=== PATIENT | male | born 1985 | race Caucasian/White ===

== ENCOUNTER 2021-06-14 10:41 | Inpatient (IN) | payer MEDICAID, SELFPAY ==
--- NOTE | ~2021-06-14 | XR_ITS ---
EXAMINATION: XR CHEST CLINICAL INFORMATION: Chest pain COMPARISON: None TECHNIQUE: Frontal view of the chest was obtained. FINDINGS: No significant abnormality is noted involving the heart, lungs, mediastinum, bony thorax or soft tissues. XR/XR chest 1V IMPRESSION: Unremarkable examination.
--- NOTE | ~2021-06-14 | US_ITS ---
EXAMINATION: US ABDOMEN LIMITED CLINICAL INFORMATION: Epigastric abdominal pain.. COMPARISON: None TECHNIQUE: Real-time imaging of the gallbladder in the right upper quadrant FINDINGS: The gallbladder contains echogenic, Shadowing stones between 0.8 and 1.5 cm in diameter. The gallbladder wall is thickened. Echogenic bile is noted. No pericholecystic fluid is identified on these images. Patient is tender in the region of the gallbladder. US/US abdomen limited IMPRESSION: Cholelithiasis with a thickened gallbladder wall and local tenderness, most concerning for acute cholecystitis.
--- NOTE | 2021-06-14 11:21 | ECG_ITS ---
Test Reason : chest paim Blood Pressure : / mmHG Vent. Rate : 061 BPM Atrial Rate : 061 BPM P-R Int : 102 ms QRS Dur : 092 ms QT Int : 408 ms P-R-T Axes : 071 069 071 degrees QTc Int : 410 ms Sinus rhythm with sinus arrhythmia with short FL Early repolarization Otherwise normal ECG No previous ECGs available Referred By: Generic ED Physician Electronically Signed By:Clinton Klein
[2021-06-14 11:38] VITALS: BP 126/55; PULSE 67; RESP 18; TEMP 36.9; O2SAT 98; BMI 24.3
[2021-06-14 12:14] LABS: MANUAL DIFF FLAG NO
[2021-06-14 12:19] LABS: Basophils Percent Auto 0.2 % (0-2); Eosinophils Absolute Auto 0.1 X10*3/uL (0.0-0.4); Eosinophils Percent Auto 0.3 % (0-4); Hematocrit 42.3 % (42.0-52.0); Hemoglobin 14.3 g/dl (14.0-18.0); Imm Gran Abs Auto 0.06 X10*3/uL (0.00-0.03); Imm Gran Pct Auto 0.3 % (0.0-0.4); Lymphocytes Absolute Auto 2.1 X10*3/uL (1.2-4.9); Lymphocytes Percent Auto 12.3 % (20-40); Mean Corpuscular HGB Conc 33.8 g/dl (31.0-36.0); Mean Corpuscular Hemoglobin 30.4 pg (27.0-33.0); Mean Corpuscular Volume 89.8 fL (80.0-98.0); Mean Platelet Volume 9.3 fL (9.4-12.4); Monocytes Absolute Auto 0.6 X10*3/uL (0.1-1.2); Monocytes Percent Auto 3.7 % (2-11); Neutrophils Absolute Auto 14.3 x10*3/uL (2.0-8.3); Neutrophils Percent Auto 83.2 % (45-73); Platelet Count 286 X10*3/uL (160-400); Red Blood Count 4.71 X10*6/uL (4.60-5.80); Red Cell Distribution Width 11.9 % (11.0-16.0); White Blood Count 17.2 X10*3/uL (4.8-10.8)
[2021-06-14 12:31] LABS: COVID-19 Test Negative (Negative)
[2021-06-14 12:43] LABS: Anion Gap 11 (12-20); Blood Urea Nitrogen 16 mg/dL (9-16); Calcium 9.8 mg/dL (8.4-10.2); Carbon Dioxide 28 mmol/L (22-29); Chloride 106 mmol/L (96-108); Creatinine Clr Calc Pharmacy 124.9; Estimated Glomerular Filt Rate > 60; Glucose Random 107 mg/dL (60-115); Potassium 4.4 mmol/L (3.3-5.1); Sodium 141 mmol/L (135-145)
[2021-06-14 19:08] LABS: Alanine Aminotransferase 44 U/L (0-40); Albumin Level 4.5 g/dL (3.5-5.0); Alkaline Phosphatase 119 U/L (39-117); Aspartate Amino Transferase 24 U/L (5-37); Bilirubin Direct < 0.2 mg/dL (0.0-0.5); Bilirubin Total 0.3 mg/dL (0.0-1.0); Lipase 16 U/L (8-78); Total Protein 7.5 g/dL (6.5-8.0)
[2021-06-14 20:39] VITALS: BP 136/71; PULSE 60; RESP 18; O2SAT 98
[2021-06-14] MEDS: Morphine Sulfate 4 MG/ML CARTRIDGE IVPUSH (20:55)
[2021-06-14] MEDS: ondansetron HCL 4 MG/2 ML VIAL IVPUSH (20:55)
[2021-06-14] MEDS: HYDROmorphone HCl 1 MG/ML SYRINGE IVPUSH (21:48)
[2021-06-14] MEDS: Metoclopramide HCl 10 MG/2 ML VIAL IVPUSH (21:49)
[2021-06-14] MEDS: LORazepam 2 MG/ML VIAL 1 MG IVPUSH (21:49)
--- NOTE | 2021-06-14 21:56 | ED_ITS ---
HPI - Abdominal Pain General Chief Complaint: Chest Pain Stated Complaint: Chest pain Time Seen by Provider: 06/14/21 13:56 Source: patient Mode of arrival: ambulatory Limitations: no limitations History of Present Illness HPI narrative: 36-year-old male presenting to the ED with complaints of chest pain/epigastric abdominal pain that started at 02:00am and will come up out of his sleep. He reports that he has associated nausea/vomiting. He reports occasionally he has some dysuria and hematuria although not today. Denies any fevers, chills, dizziness, headaches, neck pain /stiffness, sore throat, cough, trouble swallowing or breathing, dyspnea on exertion, orthopnea, palpitations, rashes, Abnormal penile discharge, diarrhea, constipation, black or bloody stools, recent travel or possible bad food exposure, recent antibiotic usage or any other symptoms complaints or concerns at this time. Patient denies any recent drug or alcohol usage. MD elicited complaint: abdominal pain Pertinent past history: none Onset (ago): hour(s) ( Prior to arrival) Pain Consistency: constant Location: chest and epigastric Severity: severe Pain scale (0-10): 10 Quality: aching and sharp Radiation: none Migration to: no migration Exacerbating factors: nothing Relieving factors: nothing Associated symptoms: nausea and vomiting Related Data Home Medications Medication Instructions Recorded Confirmed methadone 10 mg/mL oral 60 mg PO DAILY 06/14/21 06/14/21 concentrate (Methadone Intensol) Allergies Allergy/AdvReac Type Severity Reaction Status Date / Time No Known Allergies Allergy Unverified 02/12/20 17:52 [No Known Allergies*] Review of Systems Review of Systems Constitutional : No Weight loss, No Fever, No Chills, No Night Sweats, No Fatigue, No Malaise ENT/Mouth : No Hearing loss, No Ear Pain, No Nasal Congestion, No Sinus Pain, No Hoarseness, No sore throat, No Rhinorrhea, No Swallowing Difficulty Eyes: No Eye Pain, No Swelling, No Redness, No Foreign Body, No Discharge, No Vision Changes Cardiovascular : No Chest Pain, No SOB, No Dyspnea on Exertion, No Orthopnea, No Edema, No Palpitations Respiratory : No Cough, No Sputum, No Wheezing, No Smoke Exposure, No Dyspnea Gastrointestinal : Positive nausea/ vomiting /abdominal pain, No Diarrhea, No Constipation, No Hematochezia, No Melena Genitourinary : no irregular bleeding, No Dysuria, No Urinary Frequency, No Hematuria, No Urinary Incontinence, No Urgency, No Flank Pain, No Urinary Flow Changes, No Hesitancy Musculoskeletal : No joint pain, No Myalgias, No Joint Swelling Skin : No Skin Lesions, No rash Neuro : No Weakness, No Numbness, No Paresthesias, No Loss of Consciousness, No Dizziness, No Headache Psych : No Anxiety/Panic, No Depression, No SI/HI/AH/VH, No Social Issues, Heme/Lymph: No Bruising, No Bleeding,No Lymphadenopathy Endocrine : No Polyuria, No Polydipsia, No Temperature Intolerance Yes all other systems are reviewed and are negative Physical Exam Vital Signs: Vital Signs: Last Vital Signs Temp 98.4 F 06/14/21 11:38 Pulse 60 06/14/21 20:39 Resp 18 06/14/21 20:39 BP 136/71 06/14/21 20:39 Pulse Ox 98 06/14/21 20:39 BMI result Body Mass Index 24.3 vital signs have been reviewed as normal and appeared to be correct. Blood pressure 126/55. Heart rate normal. Respiration rate normal. Temperature normal. Oxygen saturation normal. Appearance: Alert. Oriented X3. in severe abdominal pain otherwise no other acute distress. Head: Normal external exam. Normocephalic. Eyes: PERRLA. EOMI. Conjunctiva and sclera normal. Eyelids normal. ENT: Pharynx normal. Uvula midline. Moist mucous membranes. No trismus noted. No drooling noted. No muffled voice noted. Neck: Normal inspection. Neck supple. FROM. No adenopathy. No meningeal signs. CVS: Normal heart rate and rhythm. Heart sound normal. No murmurs noted. Pulses normal throughout. Respiratory: No respiratory distress. Painless inspiration. Breath sounds normal. No wheezes/rales/rhonchi noted. Chest nontender. No accessory muscle usage noted or decreased air movement noted. Abdomen: Soft and Moderate tenderness up patient to epigastric / upper abdomen with guarding. Nondistended. Positive Cavanaugh sign. No rigidity. Bowel sounds normal in all 4 quadrants. No distention noted. No organomegaly noted. No visible injury noted. No rebound tenderness. Negative Rovsing sign. Negative obturator's sign. Negative psoas sign. Back: No CVA tenderness. Full range of motion noted. Skin: Skin warm and dry. Normal skin color. Normal skin turgor. No junie hes/lesions/lacerations noted. Extremities: Extremities exhibit normal range of motion. Extremities nontender. Neuro: Oriented X 3. No motor deficit. No sensory deficit. Reflexes normal. Normal steady gait. Course Course Course Narrative: 20:45am - 36-year-old male presenting to the ED with complaints of chest pain/epigastric abdominal pain that started at 02:00am and will come up out of his sleep. He reports that he has associated nausea/vomiting. He reports occasionally he has some dysuria and hematuria although not today. Plan: Labs were obtained while the patient was in the waiting room and it revealed that the patient has an elevated white blood cell count at 17,000. Anion gap 11. ALT 44. Alkaline phosphate 119. Otherwise all other labs are within normal limits. Patient negative for COVID. Therefore at this time patient is in severe pain unable to lay down and is in a dog position on the bed holding his abdomen sane that he has severe pain 10/10. Therefore will give 4 mg of morphine and 4 mg of Zofran then re-evaluate. Reevaluation(s) Reevaluation #1: - Chest x-ray within normal limits no acute processes were noted - abdominal ultrasound revealed cholelithiasis with a thickened gallbladder wall and local tenderness most concerning for acute cholecystitis. - Therefore consulted this patient with Dr. Kevin the general surgeon who will admit the patient at this time for acute cholecystitis. Patient had to be given 1 mg of Dilaudid, 1 mg of Ativan and 10 mg of Reglan and pain is more controlled. Time: 21:45 MDM - Abdominal Pain Medical Records Attestation: I reviewed the patient's medical records. Lab Data Attestation: I reviewed the patient's lab results. Result diagrams: 06/14/21 12:04 06/14/21 12:04 Labs: Lab Results 06/14/21 06/14/21 06/14/21 Range/Units 12:04 12:04 12:05 WBC 17.2 H (4.8-10.8) X10*3/uL RBC 4.71 (4.60-5.80) X10*6/uL Hgb 14.3 (14.0-18.0) g/dl Hct 42.3 (42.0-52.0) % MCV 89.8 (80.0-98.0) fL MCH 30.4 (27.0-33.0) pg MCHC 33.8 (31.0-36.0) g/dl RDW 11.9 (11.0-16.0) % Plt Count 286 (160-400) X10*3/uL MPV 9.3 L (9.4-12.4) fL Immature Gran % (Auto) 0.3 (0.0-0.4) % Neut % (Auto) 83.2 H (45-73) % Lymph % (Auto) 12.3 L (20-40) % [place] % (Auto) 3.7 (2-11) % Eos % (Auto) 0.3 (0-4) % Baso % (Auto) 0.2 (0-2) % Lymph # (Auto) 2.1 (1.2-4.9) X10*3/uL [place] # (Auto) 0.6 (0.1-1.2) X10*3/uL Eos # (Auto) 0.1 (0.0-0.4) X10*3/uL Baso # (Auto) 0.0 (0.0-0.2) X10*3/uL Abs Immat Gran (auto) 0.06 H (0.00-0.03) X10*3/uL Absolute Neuts (auto) 14.3 H (2.0-8.3) x10*3/uL Absolute Nucleated RBC 0.000 (0.0-0.012) X10*3/uL Nucleated RBC % (auto) 0.0 (0.0-0.2) /100WBC Sodium 141 (135-145) mmol/L Potassium 4.4 (3.3-5.1) mmol/L Chloride 106 (96-108) mmol/L Carbon Dioxide 28 (22-29) mmol/L Anion Gap 11 L (12-20) BUN 16 (9-16) mg/dL Creatinine 0.86 (0.5-1.4) mg/dL Estim Creat Clear Calc 124.9 Estimated GFR > 60 Random Glucose 107 (60-115) mg/dL Calcium 9.8 (8.4-10.2) mg/dL Total Bilirubin 0.3 (0.0-1.0) mg/dL Direct Bilirubin < 0.2 (0.0-0.5) mg/dL AST 24 (5-37) U/L ALT 44 H (0-40) U/L Alkaline Phosphatase 119 H (39-117) U/L Total Protein 7.5 (6.5-8.0) g/dL Albumin 4.5 (3.5-5.0) g/dL Lipase 16 (8-78) U/L COVID-19 ([facility]) Negative (Negative) COVID-19 Clin Com See Note Imaging Data Chest x-ray: Attestation: I personally reviewed and interpreted this imaging study as follows: Radiologist's impression: FINDINGS: No significant abnormality is noted involving the heart, lungs, mediastinum, bony thorax or soft tissues. XR/XR chest 1V IMPRESSION: Unremarkable examination. Abdominal ultrasound limited: Attestation: I personally reviewed and interpreted this imaging study as follows: Radiologist's impression: FINDINGS: The gallbladder contains echogenic, Shadowing stones between 0.8 and 1.5 cm in diameter. The gallbladder wall is thickened. Echogenic bile is noted. No pericholecystic fluid is identified on these images. Patient is tender in the region of the gallbladder. US/US abdomen limited IMPRESSION: Cholelithiasis with a thickened gallbladder wall and local tenderness, most concerning for acute cholecystitis. ECG Data Attestation: I personally reviewed and interpreted this ECG as follows: ECG interpretation date: 06/14/21 ECG interpretation time: 12:07 Interpretation: sinus rhythm with sinus arrhythmia with short DC interval with a ventricular rate of 61 with early repolarization no acute ischemic changes are noted. No prior EKGs to compare to at this time. Critical Care Time Critical Care Time Critical Care Time: Yes Total Critical Care Time: 60 Attestation: I personally attest to this time spent taking care of the patient Discharge Plan Discharge Clinical Impression: Acute cholecystitis Patient Disposition: Admitted As Inpatient [facility] Past Medical History Attestation statement: The following information was validated with the patient. Social History Social History Advance Directives: No Advance Directives Information Provided: No
[2021-06-15] VITALS (13 sets, daily range): BP systolic 106–158; BP diastolic 54–76; PULSE 60–87; RESP 16–20; TEMP 36.7–37.4; O2SAT 96–99
--- NOTE | 2021-06-15 02:17 | PC.NURSE ---
Patient alert and oriented x 3. ambulates independently. came in vomiting and in excruciating pain medicated with morphine that did not help then medicated with ativan, dilaudid and reglan with relief. Paged Dr. Kevin for pain medications. report called to S3. Will continue to monitor.
[2021-06-15] MEDS: HYDROmorphone HCl 1 MG/ML SYRINGE 0.5 MG IVPUSH ×2 (03:11→08:09)
[2021-06-15] MEDS: 0.9 % Sodium Chloride Flush 3 ML SYRINGE IVFLUSH (03:45)
[2021-06-15] MEDS: Dextrose 5 % and Lactated Ring 1,000 ML 125 ML IVCONT ×2 (03:47→11:35)
[2021-06-15] MEDS: Piperacillin Sodium/Tazobactam 3.375 GM in 0.9 % Sodium Chloride 50 ML IV ×2 (04:05→08:10)
[2021-06-15 05:16] LABS: MANUAL DIFF FLAG NO
[2021-06-15 05:33] LABS: Anion Gap 14 (12-20); Blood Urea Nitrogen 14 mg/dL (9-16); Calcium 9.6 mg/dL (8.4-10.2); Carbon Dioxide 25 mmol/L (22-29); Chloride 103 mmol/L (96-108); Estimated Glomerular Filt Rate > 60; Glucose Random 143 mg/dL (60-115); Sodium 138 mmol/L (135-145)
[2021-06-15 05:43] LABS: Basophils Percent Auto 0.1 % (0-2); Hematocrit 38.6 % (42.0-52.0); Hemoglobin 13.4 g/dl (14.0-18.0); Imm Gran Pct Auto 0.5 % (0.0-0.4); Lymphocytes Percent Auto 9.6 % (20-40); Mean Corpuscular HGB Conc 34.7 g/dl (31.0-36.0); Mean Corpuscular Hemoglobin 30.2 pg (27.0-33.0); Mean Corpuscular Volume 87.1 fL (80.0-98.0); Mean Platelet Volume 9.7 fL (9.4-12.4); Monocytes Absolute Auto 1.3 X10*3/uL (0.1-1.2); Monocytes Percent Auto 6.1 % (2-11); Neutrophils Absolute Auto 17.5 x10*3/uL (2.0-8.3); Neutrophils Percent Auto 83.7 % (45-73); Platelet Count 282 X10*3/uL (160-400); Red Blood Count 4.43 X10*6/uL (4.60-5.80); Red Cell Distribution Width 11.9 % (11.0-16.0); White Blood Count 20.9 X10*3/uL (4.8-10.8)
[2021-06-15] MEDS: ondansetron HCL 4 MG/2 ML VIAL IVPUSH ×2 (08:08→14:35)
[2021-06-15] MEDS: Acetaminophen 325 MG TABLET 650 MG PO (08:08)
--- NOTE | 2021-06-15 09:11 | P.HPGS_ITS ---
History of Present Illness History of Present Illness Date of Service: 06/15/21 Chief complaint: Acute cholecystitis Narrative: Kam Corbett is a 36 year old male presenting to the emergency department with complaints of chest pain and epigastric abdominal pain which began approximately 2 clock in the morning on the day prior to admission. Pain was associated with nausea and vomiting but without fever, chills, headaches, dizziness, diarrhea, or constipation. Upon presentation to the emergency department he was noted to be tender in the epigastric region and right upper quadrant with a positive Cavanaugh sign. Laboratories revealed elevated WBC. Ultrasound of the abdomen revealed thickened gallbladder wall with gallstones and a sonographic Cavanaugh sign. Findings are suggestive of acute cholecystitis. Patient denies a previous episode of similar symptoms denies a previous history of abdominal surgeries. He is admitted for management of his acute cholecystitis. Review of Systems Constitutional: Constitutional: Denies chills, Denies fever(s), Denies headache(s) and Denies poor appetite ENT: Denies dizziness and Denies headache(s) Cardiovascular: Cardiovascular: Denies chest pain, Denies rapid heart rate, Denies palpitations and Denies slow heart rate Respiratory: Respiratory: Denies chest congestion, Denies cough, Denies pain on inspiration and Denies wheezing Gastrointestinal: Gastrointestinal: Reports abdominal pain, Denies bloating, Denies change in stool character, Denies constipation, Denies diarrhea, Reports nausea, Reports vomiting and Denies hematemesis Musculoskeletal: Musculoskeletal: Denies back pain, Denies arthralgias, Denies joint swelling and Denies numbness Integumentary/Breasts: Skin/Breast: Denies change in pigmentation, Denies erythema and Denies rash Neurologic: Denies dizziness, Denies headache(s) and Denies numbness Psychiatric: Psychiatric: Denies anxiety and Denies depression Endocrine: Endocrine: Denies palpitations Hematologic/Lymphatic: Hematologic/Lymphatic: Denies easy bleeding, Denies easy bruising and Denies lymphadenopathy Allergic/Immunologic: Allergic/Immunologic: Denies wheezing PMFSH Social History Social History Household Members: Significant Other Housing: Apartment Do you presently have visiting nurse or other home services: No Patient Tobacco Use Status: Current everyday Tobacco user Tobacco use type: Cigarette Smoked in Last 30 Days: Yes Patient Interested in Nicotine Replacement: No Patient Given Instructions on How to Stop Smoking: No Second Hand Smoke Exposure: No Substance Use Type: Marijuana and Opiates Currently Displaying Signs/Symptoms of Drug Intoxication Withdrawal: No Any prior treatment program specific to substance use: No Have you been hit, kicked, punched, or otherwise hurt by someone within the past year? If so, by whom?: No Do you feel safe in your current relationship?: Yes Is there a partner from a previous relationship who is making you feel unsafe now?: No Advance Directives: No Advance Directives Information Provided: No Do you have thoughts of harming others: None Do you have a plan to hurt others: No Plan Recently lost weight without trying: No service: No Current occupational status: unemployed Meds Allergies Allergy/AdvReac Type Severity Reaction Status Date / Time No Known Allergies Allergy Unverified 02/12/20 17:52 [No Known Allergies*] Active Medications: Current Medications Acetaminophen (Acetaminophen 325 Mg Tablet) 650 mg PO Q6H PRN PRN Reason: Pain, Mild (Pain Scale 1-3) Last Admin: 06/15/21 08:08 Dose: 650 mg Documented by: Hydromorphone HCl (Hydromorphone Hcl 1 Mg/Ml Syringe) 0.5 mg IVPUSH Q2H PRN; Protocol PRN Reason: Pain, Severe (Pain Scale 7-10) Last Admin: 06/15/21 08:09 Dose: 0.5 mg Documented by: Dextrose/Lactated Ringer's ([email or web address]) 1,000 mls @ 125 mls/hr IVCONT .Q8H AMILE Last Admin: 06/15/21 03:47 Dose: 125 mls/hr Documented by: Piperacillin Sod/Tazobactam (Sod 3.375 gm/ Sodium Chloride) 50 mls @ 100 mls/hr IV Q6H [facility] Last Infusion: 06/15/21 08:49 Dose: Infused Documented by: Methadone HCl (Methadone Hcl 20 Mg/2 Ml Oral.Conc) 60 mg PO DAILY [facility] Ondansetron HCl (Ondansetron Hcl 4 Mg/2 Ml Vial) 4 mg IVPUSH Q8H PRN PRN Reason: Nausea and Vomiting Last Admin: 06/15/21 08:08 Dose: 4 mg Documented by: Oxycodone HCl (Oxycodone Hcl Immed Release 5 Mg Tablet) 5 mg PO Q6H PRN PRN Reason: Pain, Moderate (Pain Scale 4-6 Pharmacy Consult (Consult Rx Perform Med Rec) 1 each MISCELLANE ONCE PRN PRN Reason: Consult order Pharmacy Consult (Consult Rx Perform Med Rec) 1 each MISCELLANE ONCE PRN PRN Reason: Consult order Sodium Chloride (0.9 % Sodium Chloride Flush 3 Ml Syringe) 3 ml IVFLUSH QSHIFT [facility] Last Admin: 06/15/21 08:10 Dose: Not Given Documented by: Zolpidem Tartrate (Zolpidem Tartrate 5 Mg Tablet) 5 mg PO BEDTIME PRN PRN Reason: Insomnia Home Medications Medication Instructions Recorded Confirmed Last Taken Type methadone 10 mg/mL oral 60 mg PO DAILY 06/14/21 06/14/21 Unknown History concentrate (Methadone Intensol) Physical Exam Vital Signs: Vital Signs: Last Vital Signs Temp 99.3 F 06/15/21 08:00 Pulse 67 06/15/21 08:00 Resp 20 06/15/21 08:00 BP 142/76 H 06/15/21 08:00 Pulse Ox 97 06/15/21 08:00 BMI result Body Mass Index 24.3 Const: General: cooperative, comfortable and well developed Nutritional Appearance: well nourished Orientation/consciousness: patient oriented x3 HENMT: Head: Yes normocephalic and Yes atraumatic Ears: hearing grossly normal bilaterally Eyes: Sclerae: sclerae normal EOM: EOMs intact bilaterally Neck: Neck: Yes normal visual inspection Resp: Effort & Inspection: normal respiratory effort, no cough, no respiratory distress and no stridor Cardio: Jugular venous distension: no JVD GI: Inspection: Yes normal to inspection Palpation (GI): Soft to palpation, Tenderness to palpation present (GI) Cavanaugh's sign positive, Guarding due to palpation present (GI) and not rigid Percussion: Yes normal to percussion Auscultation: normal bowel sounds Rectal Exam - Male: Yes deferred Skin: General skin exam: dry skin Rashes: no rashes Neuro: General: patient oriented x3 and no focal motor deficits Extrem: General: Yes full ROM and Yes no clubbing, cyanosis or edema Psych: Appearance: grossly normal Results Results Labs: Short CBC 06/14/21 06/15/21 Range/Units 12:04 05:02 WBC 17.2 H 20.9 H (4.8-10.8) X10*3/uL Hgb 14.3 13.4 L (14.0-18.0) g/dl Hct 42.3 38.6 L (42.0-52.0) % Plt Count 286 282 (160-400) X10*3/uL BMP 06/14/21 06/15/21 12:04 05:02 Sodium 141 138 Potassium 4.4 4.0 Chloride 106 103 Carbon Dioxide 28 25 BUN 16 14 Creatinine 0.86 0.82 Calcium 9.8 9.6 Liver Function 06/14/21 Range/Units 12:04 Total Bilirubin 0.3 (0.0-1.0) mg/dL Direct Bilirubin < 0.2 (0.0-0.5) mg/dL AST 24 (5-37) U/L ALT 44 H (0-40) U/L Alkaline Phosphatase 119 H (39-117) U/L Albumin 4.5 (3.5-5.0) g/dL Assessment and Plan (1) Acute cholecystitis: Status: Acute 36-year-old male patient presenting with complaints of right upper quadrant, epigastric and chest pain found to have acute cholecystitis and cholelithiasis by ultrasound. Patient continues to have severe pain in the right upper quadrant without significant improvement since admission. I recommended a laparoscopic or possible open cholecystectomy after discussing the procedure, risks, and alternatives, he consents to the surgery. He has been added onto the operative schedule for today. Quality Stroke Does the patient have a stroke diagnosis?: No VTE Prior VTE?: No VTE Risk Level:: Surgical - moderate VTE Device Contraindication: N/A - Device Ordered VTE Drug Contraindication: Treatment Not Indicated Procedures Date of Service Date of Service: 06/15/21
--- NOTE | 2021-06-15 09:33 | MHC.CM.PN ---
EMR REVIEWED, PT ADMITTED W/ACUTE CHOLECYSTITIS W/PLAN FOR NICHOLE OTERO TODAY, CM MET W/PT WHO IS A QUESTIONABLE HISTORIAN, PT REPORTS HE LIVES IN AN APT W/SO [facility], PT IS INDEPENDENT W/ALL CARE, NO DME/HOME SERVICES, PT REPORTS HE HASN'T SEEN HIS PCP IN OVER 10YRS, PT RERPORTS HIS METHADONE CLINIC IS [facility] IN [place], PT ALSO REPORTED HE HAS NO INSURANCE HOWEVER HE MOST LIKELY HAS SOME TYPE OF COVERAGE HE IS ON METHADONE MAINTENANCE. ANTIC PT WILL D/C TOMORROW 06/16 W/NO SERVICES. D/C PLAN: HOME SELF-CARE, S.O. FOR TRANSPORT CM COMPLETED HCP W/THIS CM NAMING HIS SO JOSE J [facility]ERTAD [phone], PT RECEIVED EDUCATIONAL INFO, ORIGINAL AND 2 COPIES, COPY UPLOADED TO [employer] AND PLACED ON CHART.
--- NOTE | 2021-06-15 09:37 | PHA.MEDREC ---
Pharmacy Consult ? Medication Reconciliation Pharmacy has completed the medication reconciliation. Patient report nothing at home. He also said he just started on methadone. Keisha Salomon, PharmD
--- NOTE | 2021-06-15 13:45 | P.CONAN_ITS ---
HPI - Anesthesia Eval Consult details Narrative: 36 M for lap [place]erd On methadone [facility] Active Problems Active Problems: All Active Problems (Updated 06/14/21 @ 22:56 by FRANCISCO Alanis) Acute cholecystitis (Acute) Family History Family history of problems with anesthesia: No Surgical History Surgical History (Updated 06/15/21 @ 16:09 by Casa Kevin MD) S/P laparoscopic cholecystectomy History of Problems with Anesthesia: No Social History Social History Household Members: Significant Other Housing: Apartment Do you presently have visiting nurse or other home services: No Patient Tobacco Use Status: Current everyday Tobacco user Tobacco use type: Cigarette Smoked in Last 30 Days: Yes Patient Interested in Nicotine Replacement: No Patient Given Instructions on How to Stop Smoking: No Second Hand Smoke Exposure: No Use of substances other than those prescribed or required for medical reasons: Yes Substance Use Type: Marijuana and Opiates Substance Use Frequency: Daily Currently Displaying Signs/Symptoms of Drug Intoxication Withdrawal: No Any prior treatment program specific to substance use: No Have you been hit, kicked, punched, or otherwise hurt by someone within the past year? If so, by whom?: No Do you feel safe in your current relationship?: Yes Is there a partner from a previous relationship who is making you feel unsafe now?: No Are you DNR?: No Advance Directives: No Advance Directives Information Provided: No Advance Directives on File: No Do you have thoughts of harming others: None Do you have a plan to hurt others: No Plan Recently lost weight without trying: No service: No Current occupational status: unemployed Meds Allergies Allergy/AdvReac Type Severity Reaction Status Date / Time No Known Allergies Allergy Unverified 02/12/20 17:52 [No Known Allergies*] Active Medications: Current Medications Acetaminophen (Acetaminophen 325 Mg Tablet) 650 mg PO Q6H PRN PRN Reason: Pain, Mild (Pain Scale 1-3) Last Admin: 06/15/21 08:08 Dose: 650 mg Documented by: Hydromorphone HCl (Hydromorphone Hcl 1 Mg/Ml Syringe) 1 mg IVPUSH Q2H PRN; Protocol PRN Reason: Pain, Severe (Pain Scale 7-10) Dextrose/Lactated Ringer's (D5lr) 1,000 mls @ 125 mls/hr IVCONT .Q8H [facility] Last Admin: 06/15/21 11:35 Dose: 125 mls/hr Documented by: Piperacillin Sod/Tazobactam (Sod 3.375 gm/ Sodium Chloride) 50 mls @ 100 mls/hr IV Q6H [facility] Last Infusion: 06/15/21 08:49 Dose: Infused Documented by: Methadone HCl (Methadone Hcl 20 Mg/2 Ml Oral.Conc) 60 mg PO DAILY [facility] Methadone HCl (Methadone Hcl 20 Mg/2 Ml Oral.Conc) 60 mg PO DAILY [facility] Ondansetron HCl (Ondansetron Hcl 4 Mg/2 Ml Vial) 4 mg IVPUSH Q8H PRN PRN Reason: Nausea and Vomiting Last Admin: 06/15/21 08:08 Dose: 4 mg Documented by: Oxycodone HCl (Oxycodone Hcl Immed Release 5 Mg Tablet) 5 mg PO Q6H PRN PRN Reason: Pain, Moderate (Pain Scale 4-6 Pharmacy Consult (Consult Rx Perform Med Rec) 1 each MISCELLANE ONCE PRN PRN Reason: Consult order Pharmacy Consult (Consult Rx Perform Med Rec) 1 each MISCELLANE ONCE PRN PRN Reason: Consult order Sodium Chloride (0.9 % Sodium Chloride Flush 3 Ml Syringe) 3 ml IVFLUSH QSHIFT [facility] Last Admin: 06/15/21 08:10 Dose: Not Given Documented by: Zolpidem Tartrate (Zolpidem Tartrate 5 Mg Tablet) 5 mg PO BEDTIME PRN PRN Reason: Insomnia Home Medications Medication Instructions Recorded Confirmed Last Taken Type methadone 10 mg/mL oral 60 mg PO DAILY 06/14/21 Unknown History concentrate (Methadone Intensol) Exam Exam Date and Time: June 15, 2021 1345 Height,Weight and Vital Signs: Height 5 ft 10 in Weight 77.111 kg Last Vital Signs Temp 99.1 F 06/15/21 12:03 Pulse 60 06/15/21 12:03 Resp 16 06/15/21 12:03 BP 125/71 06/15/21 12:03 Pulse Ox 98 06/15/21 12:03 Pertinent Lab Results Pertinent Lab Results: Laboratory Tests 06/14/21 06/14/21 06/14/21 12:04 12:04 12:05 WBC 17.2 H RBC 4.71 Hgb 14.3 Hct 42.3 MCV 89.8 MCH 30.4 MCHC 33.8 RDW 11.9 Plt Count 286 MPV 9.3 L Immature Gran % (Auto) 0.3 Neut % (Auto) 83.2 H Lymph % (Auto) 12.3 L Calhoun % (Auto) 3.7 Eos % (Auto) 0.3 Baso % (Auto) 0.2 Lymph # (Auto) 2.1 Calhoun # (Auto) 0.6 Eos # (Auto) 0.1 Baso # (Auto) 0.0 Abs Immat Gran (auto) 0.06 H Absolute Neuts (auto) 14.3 H Absolute Nucleated RBC 0.000 Nucleated RBC % (auto) 0.0 Sodium 141 Potassium 4.4 Chloride 106 Carbon Dioxide 28 Anion Gap 11 L BUN 16 Creatinine 0.86 Estim Creat Clear Calc 124.9 Estimated GFR > 60 Random Glucose 107 Calcium 9.8 Total Bilirubin 0.3 Direct Bilirubin < 0.2 AST 24 ALT 44 H Alkaline Phosphatase 119 H Total Protein 7.5 Albumin 4.5 Lipase 16 COVID-19 ([facility]) Negative COVID-19 Clin Com See Note 06/15/21 06/15/21 05:02 05:02 WBC 20.9 H RBC 4.43 L Hgb 13.4 L Hct 38.6 L MCV 87.1 MCH 30.2 MCHC 34.7 RDW 11.9 Plt Count 282 MPV 9.7 Immature Gran % (Auto) 0.5 H Neut % (Auto) 83.7 H Lymph % (Auto) 9.6 L Calhoun % (Auto) 6.1 Eos % (Auto) 0.0 Baso % (Auto) 0.1 Lymph # (Auto) 2.0 Calhoun # (Auto) 1.3 H Eos # (Auto) 0.0 Baso # (Auto) 0.0 Abs Immat Gran (auto) 0.10 H Absolute Neuts (auto) 17.5 H Absolute Nucleated RBC 0.000 Nucleated RBC % (auto) 0.0 Sodium 138 Potassium 4.0 Chloride 103 Carbon Dioxide 25 Anion Gap 14 BUN 14 Creatinine 0.82 Estim Creat Clear Calc 131.0 Estimated GFR > 60 Random Glucose 143 H Calcium 9.6 Total Bilirubin Direct Bilirubin AST ALT Alkaline Phosphatase Total Protein Albumin Lipase COVID-19 ([facility]) COVID-19 Clin Com Airway Mallampati Class: III TM Dist: >3cm Neck ROM: Full Loose/Missing/Broken Teeth: Yes (Chipped right ) Heart: rrr Lungs: bl breath sounds Assessment and Plan Assessment Anesthesia Assessment: Anesthesia Plan Discussed Final Anesthetic Review Family History of Problems with Anesthesia: No History of Problems with Anesthesia: No NPO: Yes ASA Class: II Patient Risk: Intermediate Procedure Risk: Intermediate Anesthetic Plan Anesthetic Plan: GA Disposition: Standard PACU
[2021-06-15] MEDS: methADONE HCl 20 MG/2 ML ORAL.CONC 60 MG PO (14:48)
--- NOTE | 2021-06-15 16:13 | W.PM.OPN ---
Operative Note Operative Note Date of Service: 06/15/21 Narrative: Preoperative diagnosis: Acute cholecystitis due to cholelithiasis Postoperative diagnosis: Same Procedure: Laparoscopic cholecystectomy Surgeon: Casa Kevin MD Manager Quality Compliance: PREMA Lu Anesthesia: General endotracheal Indications for procedure: 36-year-old male patient presenting with severe abdominal pain in the right upper quadrant radiating to the back found to have a thickened gallbladder with multiple gallstones suggestive of acute cholecystitis. Operative findings:Acutely inflammed appendix Specimen: gallbladder Estimated blood loss:10 mls Complications:none Procedure details: Patient was brought to the OR and placed in a supine position. After administering general anesthesia the patient's abdomen was prepped with ChloraPrep and draped in a sterile fashion. Local anesthesia consisting of 0.5% Sensorcaine without epinephrine was infiltrated in a periumbilical region. A 5 mm incision was made above the umbilicus in a transverse fashion. The Veress needle was then inserted while elevating abdominal cavity with towel clips. After positive drop test the abdomen was insufflated to a pressure of 15 mm of mercury. The Veress needle was then removed and a 5 mm trocar inserted. The camera was inserted in the abdomen explored. A 12 mm trocar was then placed in the epigastrium and two 5 mm trocars placed in the right upper quadrant. The patient was placed in reverse Trendelenburg positioning and rotated to the left. The gallbladder was grasped with the fundus and retracted cephalad.. The infundibulum was then grasped and retracted away from the liver bed. The Dolphin dissected was then used to dissect the peritoneum off the infundibulum to reveal the junction with the cystic duct. Cystic artery was noted slightly medial and posterior to the cystic duct. After obtaining a critical view the cystic duct was doubly clipped and divided. The cystic artery was then doubly clipped and divided. The gallbladder was then dissected off the liver bed using electrocautery with an L hook. Hemostasis was assured all times using the electrocautery. When the gallbladder is completely dissected off the liver bed was placed in an Endo-Catch bag and brought out through the epigastric incision. The gallbladder was sent to pathology for further examination. The abdomen was then re-examined. The liver bed was irrigated and suctioned dry. No bleeding or bile leak could be identified. CO2 was then evacuated and all trocars removed. Fascia was closed at the epigastric incision using a [id number] 0 Polysorb suture. Skin was closed in all incisions using a subcuticular 4 0 Polysorb suture. Sterile dressings consisting of Steri-Strips, 2 x 2 gauze, and Tegaderm were then applied. The patient tolerated the procedure well. Sponge instrument and needle counts reported as correct. The patient was transferred to PACU in stable condition.
--- NOTE | 2021-06-16 12:39 | P.DS_ITS ---
DS: Providers Provider Date of Service: 06/15/21 Date of admission: 06/14/21 22:04 Primary care physician: Lambert Mckeon MD Attending physician on admission: Casa Kevin DS: Diagnosis Discharge Diagnosis (1) Acute cholecystitis: Status: Acute DS: Summary Hospital Course Hospital Course: BRIEF HPI: Kam Corbett is a 36 year old male presenting to the emergency department with complaints of chest pain and epigastric abdominal pain which beg an approximately 2 clock in the morning on the day prior to admission.? Pain was associated with nausea and vomiting but without fever, chills, headaches, dizziness, diarrhea, or constipation.? Upon presentation to the emergency department he was noted to be tender in the epigastric region and right upper quadrant with a positive Cavanaugh sign.? Laboratories revealed elevated WBC.? Ultrasound of the abdomen revealed thickened gallbladder wall with gallstones and a sonographic Cavanaugh sign.? Findings are suggestive of acute cholecystitis.? Patient denies a previous episode of similar symptoms denies a previous history of abdominal surgeries.? HOSPITAL COURSE: He was admitted for management of his acute cholecystitis. The patient had no improvement in his pain and it remained severe despite a nalgesics. It was therefore recommended to proceed with a laparoscopic, possible open cholecystectomy. He was added onto the operative schedule for that day. He is on Methadone 60mg PO and this was given preoperatively. On 06/15/21, a laparoscopic cholecystectomy was performed by Dr. Kevin without complication. The patient tolerated the procedure well and completed routine recovery in PACU. He had expressed the desire to go home following the procedure pre operatively. He felt well following and wanted to go home after his recovery. His pain was controlled and he was tolerating PO intake. He was discharged to home on 06/15/21 in stable condition. He is to follow up with Dr. Kevin in office in 1 week. Status at Discharge Functional status at discharge: independent ambulation Overall status at discharge: patient is progressing back to baseline Time Spent with Patient Time attestation: Total time spent providing and/or coordinating discharge services: Discharge coordination time: Less than 30 minutes Quality: Stroke Does the patient have a stroke diagnosis?: No Physical Exam Vital Signs: Vital Signs: Last Vital Signs Temp 98.1 F 06/15/21 16:39 Pulse 68 06/15/21 18:10 Resp 18 06/15/21 18:10 BP 119/68 06/15/21 18:10 Pulse Ox 96 06/15/21 18:10 BMI result Body Mass Index 24.3 Const: General: comfortable, no acute distress and alert Orientation/consciousness: patient oriented x3 Resp: Effort & Inspection: normal respiratory effort GI: Inspection: No distended and Yes incision (dressings c/d/i) Palpation (GI): Soft to palpation and Tenderness to palpation present (GI) (incisional, mild) Skin: General skin exam: no rashes or lesions noted Neuro: General: patient oriented x3 DS: Data Data Completed and Pending Pending studies at discharge: Pending at discharge 06/15/21 15:57 Surgical [PTH] Routine Discharge Plan Discharge Patient Disposition: Home, Self-Care Discharge Diagnosis: Acute cholecystitis, cholelithiasis Referrals: Lambert Mckeon MD [Primary Care Provider] - 1 Week Casa Kevin MD [Physician] - 1 Week Discharge Medications: New oxycodone-acetaminophen [Endocet] 5-325 mg tablet 1 tab PO Q6H MDD 4 tabs PRN (Reason: pain (scale score 7-10)) Qty: 15 RF: 0 Continued methadone [Methadone Intensol] 10 mg/mL Concentrate 60 mg PO DAILY RF: 0 Discharge Orders: Discharge Order (Routine); Ordered 06/15/21 Ordered By: Casa Kevin Diet: low fat, low cholesterol Activity on Discharge: No heavy lifting Stand Alone Forms: Patient Portal Discharge page Activity Restrictions/Additional Instructions: No lifting > 10 pounds for 2 weeks No driving for one week Ice to the incision x 24 hours Remove dressing in 3 days Follow up in office in one week. Care Plan Goals: Return to normal activity and diet; full healing of incisions following laparoscopic cholecystectomy Health Concerns: Acute cholecystitis due to cholelithiasis Plan of Treatment: Laparoscopic cholecystectomy Assessment: Acute cholecystits Discharge Date/Time: 06/15/21 17:10
== END 2021-06-15 17:10 | disposition home or self-care (01) | DRG 263 ==
LOC: HO.ED 20:41 → HO.EDOVER 22:41 → HO.S3 06-15 01:58
PROVIDERS: Nurse Practitioner Family; Admitting Provider Surgery; Emergency Provider Emergency Medicine; Visit Provider Surgery
PROC: 0FT44ZZ Resection of Gallbladder, Percutaneous Endoscopic Approach (ICD-10-PCS; CPT 47562; principal; 2021-06-15 12:50)
DX: K80.00 Calculus of gallbladder with acute cholecystitis without obstruction (principal); F11.20 Opioid dependence, uncomplicated; F17.210 Nicotine dependence, cigarettes, uncomplicated; Z71.6 Tobacco abuse counseling; Z20.822 Contact with and (suspected) exposure to COVID-19
CPT/HCPCS: 47562; 36415; 71045; 76705; 80048; 80076; 83690; 85025; 87635; 88304; 93005; 99218; 99285; J1100; J1170; J1885; J2060; J2250; J2270; J2405; J2543; J2765; J3010

== ENCOUNTER 2023-04-14 11:05 | Emergency (ER) | payer OTHER, SELFPAY ==
--- NOTE | 2023-04-14 11:10 | ED_ITS ---
HPI - General Adult General Chief complaint: General Medical Stated complaint: methadone dose Time Seen by Provider: 04/14/23 11:27 Source: patient Mode of arrival: ambulatory Limitations: no limitations History of Present Illness HPI narrative: 37 year old male with pmhx significant for opioid use disorder presents to the ED today requesting methadone dose. States that his car battery this morning and was unable to make it to the clinic in time for his methadone dose. States his last dose was yesterday. Reports a dose of 100 mg daily. Denies any physical complaints at present. Denies EtOH or drug use. Related Data Home Medications Medication Instructions Recorded Confirmed methadone 10 mg/mL oral 100 mg PO DAILY 06/14/21 04/14/23 concentrate (Methadone Intensol) Previous Rx's Medication Instructions Recorded oxycodone-acetaminophen 5 mg-325 1 tab PO Q6H PRN pain (scale score 06/15/21 mg tablet (Endocet) 7-10) #15 tabs Allergies Allergy/AdvReac Type Severity Reaction Status Date / Time No Known Allergies Allergy Verified 04/14/23 11:10 [No Known Allergies*] Review of Systems Review of Systems: Constitutional: No fever, chills, fatigue, night sweats, weight changes ENT/Mouth: No ear pain, hearing loss, nasal congestion, sinus pain, rhinorrhea, sore throat Eyes: No eye pain, swelling, redness, vision changes, discharge Cardio: No chest pain, palpitations, WEST, orthopnea, peripheral edema Pulm: No SOB, cough, sputum, wheezing, dyspnea, hemoptysis GI: No nausea, vomiting, hematemesis, abdominal pain, diarrhea, constipation, hematochezia, melena : No irregular bleeding, dysuria, frequency, urgency, hesitancy, hematuria, flank pain, urinary flow changes, urinary incontinence or retention MSK: No back pain, neck pain, joint pain, myalgias Skin: No lesions, rashes Neuro: No weakness, numbness, paresthesias, LOC, dizziness, headache All other systems reviewed and are negative. [facility] Past Medical History Attestation statement: The following information was validated with the patient. Source: old records reviewed and nursing notes reviewed Surgical History S/P laparoscopic cholecystectomy Social History Social History Household Members: Significant Other Housing: Apartment Do you presently have visiting nurse or other home services: No Patient Tobacco Use Status: Current everyday Tobacco user Tobacco use type: Cigarette Second Hand Smoke Exposure: No Substance Use Type: Marijuana and Opiates Advance Directives: No Advance Directives Information Provided: No service: No Current occupational status: unemployed Physical Exam ED Vital Signs: Vital Signs - 24 hr 04/14/23 11:11 Temperature 98.1 F Pulse Rate 77 Respiratory Rate 18 Blood Pressure 129/78 Pulse Oximetry 95 Oxygen Delivery Method Room Air BMI result Body Mass Index 28.3 Vital signs stable Const General: cooperative, healthy appearing, no acute distress, alert and awake Orientation/consciousness: patient oriented x3 Limitations: no limitations HENMT Ears: hearing grossly normal bilaterally Mouth: Normal oral and palatal mucosa present Eyes General: appearance normal, both eyes and all related structures Conjunctivae: conjunctivae normal Sclerae: sclerae normal Pupils: Equal, round and reactive pupils present Resp Effort & Inspection: normal respiratory effort Auscultation: clear to auscultation bilaterally Cardio Rate: regular rate Rhythm: regular rhythm Skin General skin exam: no rashes or lesions noted Neuro General: patient oriented x3, gait normal and moves all extremities Cranial nerves: Yes Equal, round and reactive pupils present Extrem General: Yes normal to inspection Course Course Course Narrative: This is an RME: Additional HPI, ROS, PE not included below will be deferred to primary provider. This is a [id number], with a history of opioid use disorder on methadone 100 mg, presenting to the ER for methadone dosing. Pt states that he had car trouble and could not get into the clinic before they closed. He is currently on methadone 100mg, last dose was , 04/12/2023. Plan: Verify methadone dose Reevaluation(s) Reevaluation #1: 1210-- KWAKU Del Toro spoke with [facility] staff who confirmed methadone dose of 100mg. States that he was dosed at the clinic on (04/12) and was given a take home bottle of methadone for yesterday. Methadone has also been verified by our pharmacy. 100mg methadone given in ED today. All questions answered. Patient is stable for discharge. Medications Administered Discontinued Medications Generic Name Dose Route Start Last Admin Trade Name Freq PRN Reason Stop Dose Admin Methadone HCl 100 mg 04/14/23 12:15 04/14/23 12:31 Methadone Hcl 20 Mg/2 Ml Oral.Conc PO 04/14/23 12:16 100 mg ONCE ONE Administration Medical Decision Making Medical Decision Making [facility] Narrative: 37 year old male with pmhx significant for opioid use disorder presents to the ED today for methadone dose. Vital signs are stable. Patient is nontoxic appearing in no acute distress. Clinical concern for opioid use disorder requiring methadone. His physical exam is unremarkable. He tolerated his dose of methadone in the emergency department today. Advised him to continue following up with [facility]. Differential Diagnosis Differential Diagnoses: The differential diagnosis associated with the presentation includes As above. Admission/Observation Not indicated. External Record Review External record reviewed: Inpatient record Prescription Management I considered prescription management with: Pain Medication Chronic Conditions Patient?s care impacted by: Other (Opioid use disorder) Social Determinants Patient?s care significantly limited by Social Determinants of Health including: Other Social Determinant of Health Critical Care Time Critical Care Time Critical Care Time: No Discharge Plan Discharge Clinical Impression: Opioid use disorder, Methadone use Patient Disposition: Home, Self-Care Instructions: Opioid Withdrawal (ED) Additional Instructions: You were given your dose of methadone in the ED today. Make sure you are getting to the clinic on time for your methadone dose. Prescriptions: No Action methadone [Methadone Intensol] 10 mg/mL Concentrate 100 mg PO DAILY oxycodone-acetaminophen [Endocet] 5-325 mg tablet 1 tab PO Q6H MDD 4 tabs PRN (Reason: pain (scale score 7-10)) Qty: 15 0RF Interventions: ED Discharge Assessment Last Done: 04/14/23 12:46 Discharge Date/Time: 04/14/23 12:47
[2023-04-14 11:11] VITALS: BP 129/78; PULSE 77; RESP 18; TEMP 36.7; O2SAT 95; BMI 28.3
--- NOTE | 2023-04-14 12:14 | HE.PHANOTE ---
METHADONE VERIFICATION RECEIVED PATIENT TAKES 100MG DAILY IN TAKE HOME BOTTLES AND WAS UNABLE TO GO TO CLINIC TODAY LAST DOSE 04/12
[2023-04-14] MEDS: methADONE HCl 20 MG/2 ML ORAL.CONC 100 MG PO (12:31)
--- NOTE | 2023-04-14 12:47 | PC.NURSE ---
nurse verified dose at [facility] by Gaby at clinic. faxed to pharmacy
== END 2023-04-14 12:47 | disposition home or self-care (01) ==
PROVIDERS: Emergency Provider Emergency Medicine
DX: F11.20 Opioid dependence, uncomplicated (principal); F17.210 Nicotine dependence, cigarettes, uncomplicated
CPT/HCPCS: 99282; 99283

== ENCOUNTER 2023-09-26 10:17 | Emergency (ER) | payer OTHER, SELFPAY ==
[2023-09-26 11:55] VITALS: BP 160/92; PULSE 97; RESP 16; TEMP 36.9; O2SAT 96; BMI 27.3
--- NOTE | 2023-09-26 14:28 | ED_ITS ---
HPI - Dental/Oral General Chief complaint: Dental/Oral Stated complaint: Tooth pain Time Seen by Provider: 09/26/23 14:04 Source: patient Mode of arrival: ambulatory Limitations: no limitations History of Present Illness HPI Narrative: 38-year-old male presents with dental pain for the past few months worsening acutely over the past few days, patient reports he has had a left lower tooth fracture that has been present for months that he knew of progressively worsening he reports that this morning he noted swelling and pain to his left gum and left tooth with some associated swelling to the left cheek. Patient has not seen a dentist since 2013. He reports significant discomfort and inability to chew much on that side due to the fractured tooth. He does not recall exactly how he fractured his tooth. He reports he has been putting off going to the dentist for a while but feels like he should probably go now. Denies fevers, chills, drooling, nausea, vomiting, abdominal pain, chest pain, shortness of breath, changes in voice trouble controlling secretions. No recent dental work MD Complaint: tooth pain Location: Tooth # (18) Teeth map: 2 1. broken tooth Related Data Home Medications ?Medication ?Instructions ?Recorded ?Confirmed methadone 10 mg/mL oral 100 mg PO DAILY 06/14/21 04/14/23 concentrate (Methadone Intensol) Previous Rx's ?Medication ?Instructions ?Recorded oxycodone-acetaminophen 5 mg-325 1 tab PO Q6H PRN pain (scale score 06/15/21 mg tablet (Endocet) 7-10) #15 tabs amoxicillin 875 mg-potassium 1 tab PO BID 10 days #20 tabs 09/26/23 clavulanate 125 mg tablet ketorolac 10 mg tablet 10 mg PO TID PRN pain 5 days #15 09/26/23 tabs Allergies Allergy/AdvReac Type Severity Reaction Status Date / Time No Known Allergies Allergy Verified 09/26/23 11:57 [No Known Allergies*] Review of Systems 2 Review of Systems: Yes all other systems are reviewed and are negative PMFSH Past Medical History Attestation statement: The following information was validated with the patient. Source: old records reviewed and nursing notes reviewed Surgical History S/P laparoscopic cholecystectomy Social History Social History Household Members: Significant Other Housing: Apartment Do you presently have visiting nurse or other home services: No Patient Tobacco Use Status: Current everyday Tobacco user Tobacco use type: Cigarette Second Hand Smoke Exposure: No Substance Use Type: Marijuana and Opiates Advance Directives: No service: No Current occupational status: unemployed Physical Exam 2 Vital Signs: Vital Signs: Last Vital Signs Temp 98.5 F 09/26/23 11:55 Pulse 97 09/26/23 11:55 Resp 16 09/26/23 11:55 BP 160/92 H 09/26/23 11:55 Pulse Ox 96 09/26/23 11:55 O2 Del Method Room Air 09/26/23 11:55 BMI result Body Mass Index 27.3 vss Appearance: Alert.? Oriented X3.? No acute distress.? Head: Normocephalic, atraumatic, no step-offs or deformities Eyes: Pupils equal, round and reactive to light.? ENT: Pharynx normal.?Tooth # 18 fractured w/ caries and poor dention and hallatosis throughout. Swelling to a/c gum no palpable abscess and swelling to left side of cheek Neck: Normal inspection.? Neck supple.? CVS: Normal heart rate and rhythm.? Pulses normal.? Respiratory: No respiratory distress.? Breath sounds normal.?.? Skin: Skin warm and dry.? Normal skin color.? Normal skin turgor.? Extremities: No lower extremity edema.? No calf ttp. 5/5 strength to bilateral upper and lower extremities Neuro: Oriented X 3.? No motor deficit.? No sensory deficit. CN 2-12 intact Course Reevaluation(s) Reevaluation #1: Patient to be discharged home with antibiotics and dental follow-up. Educated patient on diagnosis and treatment plan, answered all question, patient verbalizes understanding. At this time patient will be discharged home, advised to return with new or worsening symptoms. Educated on worrisome signs and symptoms and when to return. At this time I feel comfortable discharge home. Time: 14:33 Medical Decision Making Medical Decision Making MDM Narrative: 38-year-old male presents with dental pain and left-sided facial swelling, has had a fractured tooth that has been worsening over the past few months Physical exam significant for Tooth # 18 fractured w/ caries and poor dention and hallatosis throughout. Swelling to a/c gum no palpable abscess and swelling to left side of cheek History and physical exam concerning for fractured tooth with likely developing infection and possible developing gingival abscess. No signs of dental abscess at this time, threat to airway, Leon's angina, or issues controlling secretions . No signs of peritonsillar, retropharyngeal abscess, epiglottitis. Plan- will dc w/ dental follow up antibiotics. Differential Diagnosis Differential Diagnoses: The differential diagnosis associated with the presentation includes History and physical exam concerning for fractured tooth with likely developing infection and possible developing gingival abscess. No signs of dental abscess at this time, threat to airway, Leon's angina, or issues controlling secretions . No signs of peritonsillar, retropharyngeal abscess, epiglottitis. Admission/Observation Consideration of admission/observation: Escalation of care including admission/observation considered Unlikely Prescription Management I considered prescription management with: Antibiotic Critical Care Time Critical Care Time Critical Care Time: No Discharge Plan Discharge Clinical Impression: Toothache, Fracture of tooth Patient Disposition: Home, Self-Care Instructions: Toothache (ED), Tooth Extraction (DC) Additional Instructions: Take your medications as prescribed. If you were prescribed antibiotics today, it is important that you take your medication to their entirety, do not skip any doses, do not finish them early. Follow-up with your primary care provider this week. Return to the emergency department with new or worsening symptoms. In case of emergency call 911 Call a dentist today to schedule an appointment within the next 1-3 days. Return with any new or worsening symptoms such as drooling, changes in voice, trouble controlling your own secretions, difficulty eating, worsening swelling or pain. Call [phone] [facility] Toradol has been sent to your pharmacy, you tolerated this well in the department. Please take this as prescribed do not take this with ibuprofen, or other NSAIDs, do not mix this with alcohol. Side effects of this medication including increased risk for bleeding and possible kidney injury. Prescriptions: New amoxicillin-pot clavulanate 875-125 mg tablet 1 tab PO BID 10 Days Qty: 20 0RF ketorolac 10 mg tablet 10 mg PO TID PRN (Reason: pain) 5 Days Qty: 15 0RF No Action methadone [Methadone Intensol] 10 mg/mL Concentrate 100 mg PO DAILY oxycodone-acetaminophen [Endocet] 5-325 mg tablet 1 tab PO Q6H MDD 4 tabs PRN (Reason: pain (scale score 7-10)) Qty: 15 0RF Referrals: Physician,None [Primary Care Provider] - 2 days Stand Alone Forms: Work/School Release Print Language: [place]
[2023-09-26] MEDS: Ketorolac Tromethamine 30 MG/ML VIAL IM (14:36)
[2023-09-26 14:49] VITALS: BP 146/68; PULSE 84; RESP 16; TEMP 36.6; O2SAT 98
== END 2023-09-26 14:50 | disposition home or self-care (01) ==
PROVIDERS: Emergency Provider Emergency Medicine
DX: K03.81 Cracked tooth (principal); K02.9 Dental caries, unspecified; K08.89 Other specified disorders of teeth and supporting structures; F17.210 Nicotine dependence, cigarettes, uncomplicated; F12.90 Cannabis use, unspecified, uncomplicated
CPT/HCPCS: 96372; 99283; 99284; J1885

== ENCOUNTER 2025-02-19 23:07 | Emergency (ER) | payer OTHER, SELFPAY ==
[2025-02-19 23:19] VITALS: BP 138/67; PULSE 94; RESP 16; TEMP 37.2; O2SAT 94; BMI 25.1
[2025-02-20 00:22] VITALS: BP 127/71; PULSE 80; RESP 20; TEMP 36.8; O2SAT 95
--- NOTE | 2025-02-20 00:47 | ED.DENTAL ---
HPI - Dental/Oral General Chief complaint: Dental/Oral Stated complaint: dental abscess Time Seen by Provider: 02/19/25 23:55 History of Present Illness HPI Narrative: Patient is a 39-year-old male presents today complaining that he has pain to his right upper jaw. History of narcotic abuse. Currently on methadone. No IV drugs. Patient is from home. No fever no chills no diaphoresis complaining of worsening swelling over the last 2 days. No change in breathing no change in swallowing. Related Data Home Medications ?Medication ?Instructions ?Recorded ?Confirmed methadone 10 mg/mL oral 100 mg PO DAILY 06/14/21 04/14/23 concentrate (Methadone Intensol) Previous Rx's ?Medication ?Instructions ?Recorded oxycodone-acetaminophen 5 mg-325 1 tab PO Q6H PRN pain (scale score 06/15/21 mg tablet (Endocet) 7-10) #15 tabs amoxicillin 875 mg-potassium 1 tab PO BID 10 days #20 tabs 09/26/23 clavulanate 125 mg tablet ketorolac 10 mg tablet 10 mg PO TID PRN pain 5 days #15 09/26/23 tabs penicillin V potassium 500 mg 500 mg PO TID #20 tabs 02/20/25 tablet Allergies Allergy/AdvReac Type Severity Reaction Status Date / Time No Known Allergies (No Known Allergy Verified 02/19/25 23:22 Allergies*) Review of Systems Review of Systems: Positive swelling to the upper jaw Yes all other systems are reviewed and are negative PMFSH Past Medical History Attestation statement: The following information was validated with the patient. Surgical History S/P laparoscopic cholecystectomy Social History Social History Household Members: Significant Other Housing: Apartment Do you presently have visiting nurse or other home services: No Alcohol intake: current Alcohol intake frequency: does not drink Patient Tobacco Use Status: Current everyday Tobacco user Tobacco use type: Cigarette Smoked in Last 30 Days: Yes Second Hand Smoke Exposure: No Substance Use Type: Heroin and Marijuana Substance Use Frequency: Daily Advance Directives: No Advance Directives Information Provided: Yes Do you have a plan to hurt others: No Plan service: No Current occupational status: unemployed Physical Exam Exam: Exam: Appearance: Alert. Oriented X3. No acute distress. Eyes: Pupils equal, round and reactive to light. ENT: Positive dental decay in the upper right inner molar. There is no abscess palpable. Posterior pharynx is normal Neck: Normal inspection. Neck supple. No lymph nodes noted. No crepitus CVS: Normal heart rate and rhythm. Pulses normal. Normal S1 and S2 Respiratory: No respiratory distress. Breath sounds normal. No Wheezing. No rales Abdomen: Soft and nontender. No rigidity. No distention. good BS x4 Skin: Skin warm and dry. Normal skin color. Normal skin turgor. Extremities: No lower extremity edema. Neurovascular intact to all extremities. No Lacerations. No Rash Neuro: Oriented X 3. No motor deficit. No sensory deficit. Moving all extermities. No slurred speech Vital Signs: Vital Signs: Last Vital Signs Temp 98.2 F 02/20/25 00:22 Pulse 80 02/20/25 00:22 Resp 20 02/20/25 00:22 BP 127/71 02/20/25 00:22 Pulse Ox 95 02/20/25 00:22 O2 Del Method Room Air 02/20/25 00:22 BMI result Body Mass Index 25.1 Medical Decision Making Medical Decision Making MDM Narrative: Significant dental cavities noted. Started on penicillin. Additional script was given to the pharmacy of patient's choice. Discussed with patient the need to go see a dentist he claims he does not have 1. Discussed with patient he needs to follow up with [facility] potentially they have a dental clinic that can help him. Patient states understanding. Elected not to give patient narcotic as he has a history of being on methadone. Will give patient penicillin. Close follow-up advised. Currently in stable condition. Differential Diagnosis Differential Diagnoses: The differential diagnosis associated with the presentation includes Dental cavity dental abscess Lab Data [facility] Lab Attestation statement: I reviewed the patient's lab results. Social Determinants Patient?s care significantly limited by Social Determinants of Health including: Alcoholism and drug addiction in family, Problems related to primary support group and Unemployment Discharge Plan Discharge Clinical Impression: Dental caries Patient Disposition: Home, Self-Care Instructions: Toothache (ED) Prescriptions: New penicillin V potassium 500 mg tablet 500 mg PO TID Qty: 20 0RF No Action methadone [Methadone Intensol] 10 mg/mL Concentrate 100 mg PO DAILY oxycodone-acetaminophen [Endocet] 5-325 mg tablet 1 tab PO Q6H MDD 4 tabs PRN (Reason: pain (scale score 7-10)) Qty: 15 0RF amoxicillin-pot clavulanate 875-125 mg tablet 1 tab PO BID 10 Days Qty: 20 0RF ketorolac 10 mg tablet 10 mg PO TID PRN (Reason: pain) 5 Days Qty: 15 0RF Referrals: [facility] [Provider Group] - 02/20/25 Stand Alone Forms: Work/School Release Print Language: Telugu
[2025-02-20 01:03] VITALS: BP 127/71; PULSE 80; RESP 20; TEMP 36.8; O2SAT 95
== END 2025-02-20 01:04 | disposition home or self-care (01) ==
PROVIDERS: Emergency Provider Emergency Medicine Emergency Medical Services
DX: K02.9 Dental caries, unspecified (principal); Z79.899 Other long term (current) drug therapy; Z79.891 Long term (current) use of opiate analgesic
CPT/HCPCS: 99283; 99284